=== PATIENT | female | born 1995 | race Caucasian/White ===

== ENCOUNTER 2021-07-15 12:42 | Emergency (ER) | payer BC ==
[~2021-07-15] VITALS: Ht 162.6 cm; Wt 59.0 kg
[2021-07-15 12:47] VITALS: BP 104/73
== END 2021-07-15 16:52 | disposition left against medical advice (07) ==
LOC: ER 12:42
DX: R06.02 Shortness of breath (principal); R53.1 Weakness
CPT/HCPCS: 99283